=== PATIENT | male | born 1955 | race Caucasian/White ===

== ENCOUNTER 2018-05-28 04:14 | Emergency (ER) | payer MEDICARE, MEDICAID ==
[2018-05-28 05:09] LABS: % BASOPHILS 1.4 % (0.0-2.0); % LYMPHOCYTES 28.4 % (20.0-50.0); % MONOCYTES 7.8 % (2.0-10.0); % NEUTROPHILS 59.4 % (40.0-80.0); BASOPHILE ABSOLUTE 0.1 Th/cumm (0-0.2); EOSINOPHILE ABSOLUTE 0.2 Th/cmm (0.1-0.4); HEMATOCRIT 42.7 % (41.0-60); HEMOGLOBIN 14.6 gm/dL (12-16); LYMPHOCYTE ABSOLUTE 2.3 Th/cmm (1.5-3.0); MEAN CELL VOLUME 98.9 fl (80-99); MEAN CORPUSCULAR HEMOGLOBIN 33.8 pg (26.0-30.0); MEAN CORPUSCULAR HGB CONC 34.2 pg (28.0-36.0); MEAN PLATELET VOLUME 8.3 fl; MONOCYTE ABSOLUTE 0.6 Th/cmm (0.3-1.0); PLATELET COUNT 258 Th/cmm (150-400); RED BLOOD COUNT 4.32 Mil/cmm (4.30-5.70); RED CELL DISTRIBUTION WIDTH 12.2 % (11.5-20.0); WHITE BLOOD COUNT 8.2 Th/cmm (4.8-10.8)
[2018-05-28 05:30] LABS: ALB/GLOB RATIO 1.5 (1.0-1.8); ALBUMIN 4.4 gm/dL (4.2-5.5); BILIRUBIN,TOTAL 0.5 mg/dL (0.3-1.0); CALCIUM SERUM 10.1 mg/dL (8.6-10.3); CARBON DIOXIDE 27.3 mEq/L (21.0-31.0); CREATININE - SERUM 1.6 mg/dL (0.7-1.3); GFR AFRICAN-AMERICAN 56.4 ml/min (>90); GFR NON AFRICAN-AMERICAN 46.6 ml/min; POTASSIUM SERUM 3.3 mEq/L (3.5-5.1); TOTAL PROTEIN,SERUM 7.4 gm/dL (6.0-8.3)
--- NOTE | 2018-05-28 06:31 | ED Physician Chart ---
ED Chief Complaint/HPI - Patient Information Date Seen:: 05/28/18 Time Seen:: 06:28 Chief Complaint:: generalized weakness History of Present Illness:: 62 yr old male with generalized weakness hx oh HIV BIPOLAR DISORDER DEPRESSION HTN KIDNEY STONES HERE FOR GENERALIZED WEAKNESS NO FEVER COUGH NV OR DIARHEA Allergies:: Allergies Allergy/AdvReac Type Severity Reaction Status Date / Time No Known Allergies Allergy Verified 05/28/18 04:36 Vitals:: Vital Signs - 8 hr 05/28/18 04:15 Temp 98.1 F HR 81 RR 18 BP 101/73 O2 Sat % 97 Historian:: Patient ED Review of Systems - Review of Systems General/Constitutional: Weakness Skin: No skin lesions, No rash, No bruising Head: No headache, No light-headedness Eyes: No loss of vision, No pain, No diplopia ENT: No earache, No nasal drainage, No sore throat, No tinnitus Neck: No neck pain, No swelling, No thyromegaly, No stiffness, No mass noted Cardio Vascular: No chest pain, No palpitations, No PND, No orthopnea, No edema Pulmonary: No SOB, No cough, No sputum, No wheezing GI: No nausea, No vomiting, No diarrhea, No pain, No melena, No hematochezia, No constipation, No hematemesis G/U: No dysuria, No frequency, No hematuria Musculoskeletal: No bone or joint pain, No back pain, No muscle pain Endocrine: No polyuria, No polydipsia Psychiatric: No prior psych history, No depression, No anxiety, No suicidal ideation Hematopoietic: No bruising, No lymphadenopathy Allergic/Immuno: No urticaria, No angioedema Neurological: No syncope, No focal symptoms, No weakness, No paresthesia, No headache, No seizure, No dizziness, No confusion, No vertigo ED Past Medical History - Past Medical History Past Medical History: Other (HIV BIPOLAR DEPRESSION HTN KIDNEY STONES) Family Medical History - Family Member Mother History Unknown: Yes ED Physical Exam - Physical Examination General/Constitutional: Awake, Well-developed, well-nourished, Alert, No distress, GCS 15, Non-toxic appearing, Ambulatory Head: Atraumatic Eyes: Lids, conjuctiva normal, PERRL, EOMI Skin: Nl inspection, No rash, No skin lesions, No ecchymosis, Well hydrated, No lymphadenopathy ENMT: External ears, nose nl, Nasal exam nl, Lips, teeth, gums nl Neck: Nontender, Full ROM w/o pain, No JVD, No nuchal rigidity, No bruit, No mass, No stridor Respiratory: Nl effort/Exclusion, Clear to Auscultation, No Wheeze/Rhonchi/Rales Cardio Vascular: RRR, No murmur, gallop, rubs, NL S1 S2 GI: No tenderness/rebounding/guarding, No organomegaly, No hernia, Normal BS's, Nondistended, No mass/bruits, No McBurney tenderness : No CVA tenderness Extremities: No tenderness or effusion, Full ROM, normal strength in all extremities, No edema, Normal digits & nails Neuro/Psych: Alert/oriented, DTR's symmetric, Normal sensory exam, Normal motor strength, Judgement/insight normal, Mood normal, Normal gait, No focal deficits Misc: Normal back, No paraspinal tenderness ED Labs/Radiology/EKG Results - Lab Results Results: Laboratory Tests 05/28/18 05/28/18 05:00 05:00 WBC 8.2 RBC 4.32 Hgb 14.6 Hct 42.7 MCV 98.9 MCH 33.8 H MCHC Differential 34.2 RDW 12.2 Plt Count 258 MPV 8.3 Neutrophils % 59.4 Lymphocytes % 28.4 Monocytes % 7.8 Eosinophils % 3.0 Basophils % 1.4 Sodium 138 Potassium 3.3 L Chloride 102 Carbon Dioxide 27.3 Anion Gap 12.0 BUN 29 H Creatinine 1.6 H Est GFR ( Amer) 56.4 Est GFR (Non-Af Amer) 46.6 BUN/Creatinine Ratio 18.1 Glucose 107 H Calcium 10.1 Total Bilirubin 0.5 AST 22 ALT 23 Alkaline Phosphatase 145 H Total Protein 7.4 Albumin 4.4 Globulin 3.0 Albumin/Globulin Ratio 1.5 ED Assessment - Assessment General Assessment: BIPOLAR DISORDER GENERALIZED WEAKNESS ED Septic Shock - . Is Septic Shock (SBP<90, OR Lactate>4 mmol\L) present?: No - <6hrs of presentation: Vital Signs: Vital Signs - 8 hr 05/28/18 04:15 Temp 98.1 F HR 81 RR 18 BP 101/73 O2 Sat % 97 ED Discharge Plan - Patient Disposition Condition at Disposition: Improved
[2018-05-28] MEDS ORDERED: Potassium Chloride 20 mEq ER Tab PO ONE ×2 (06:36→06:41)
== END 2018-05-28 08:30 | disposition home or self-care (01) ==
LOC: ER 04:14
DX: R53.1 Weakness (principal); I10 Essential (primary) hypertension; F32.9 Major depressive disorder, single episode, unspecified; Z87.442 Personal history of urinary calculi
CPT/HCPCS: 36415-UA; 80053-TC; 85025-TC; Z7502